=== PATIENT | female | born 1940 | race Caucasian/White ===

== ENCOUNTER 2018-11-16 09:55 | Emergency (ER) | payer OTHER ==
[2018-11-16 11:16] LABS: Protime INR 0.98
[2018-11-16 11:17] LABS: Absolute Lymphocytes (CBC) 0.8 K/uL (0.7-4.9); Absolute Monocytes 0.5 K/uL (0.1-1.3); Absolute Neutrophil 4.1 K/uL (1.8-8.0); Basophils % 0.2 % (0-1.3); Eosinophils % 2.2 % (0-4.4); Hematocrit 40.2 % (36.0-45.0); Lymphocytes % 14.2 % (15.3-44.8); MPV 9.3 fL (7.6-11.3); Monocytes % 9.4 % (3.3-12.3); RBC Red Blood Cell Count 4.35 M/uL (3.86-4.86)
[2018-11-16 11:37] LABS: ALT/SGPT 16 U/L (12-78); AST/SGOT 18 U/L (15-37); Albumin 3.5 g/dL (3.4-5.0); Alkaline Phosphatase 100 U/L (45-117); BUN Blood Urea Nitrogen 19 mg/dL (7-18); Bicarbonate 31 mmol/L (21-32); Bilirubin Direct 0.1 mg/dL (0-0.2); Bilirubin Total 0.3 mg/dL (0.2-1.0); Glucose Level 168 mg/dL (74-106); Magnesium 2.6 mg/dL (1.8-2.4); NT PRO-BNP 573 pg/mL (<450); Sodium Level 141 mmol/L (136-145); Troponin (Emerg Dept Use Only) < 0.02 ng/mL (0.0-0.045)
--- NOTE | 2018-11-16 12:05 | RAD REPORT ---
EXAM DESCRIPTION: RAD - Chest Single View - 11/16/2018 11:55 am CLINICAL HISTORY: dizziness Chest pain. COMPARISON: No comparisons FINDINGS: Portable technique limits examination quality. Mild interstitial pulmonary edema. The heart is upper limit of normal in size. No displaced fractures .Aortic atherosclerosis. IMPRESSION: Mild CHF versus volume overload pattern.
--- NOTE | 2018-11-16 12:23 | RAD REPORT ---
EXAM DESCRIPTION: CT - Head Brain Wo Cont - 11/16/2018 12:16 pm CLINICAL HISTORY: DIZZINESS Trauma, head injury COMPARISON: No comparisons TECHNIQUE: All CT scans are performed using dose optimization technique as appropriate and may inclu de automated exposure control or mA/KV adjustment according to patient size. FINDINGS: No intracranial hemorrhage, hydrocephalus or extra-axial fluid collection.No areas of brai n edema or evidence of midline shift. The paranasal sinuses and mastoids are clear. The calvarium is intact. IMPRESSION: No acute intracranial abnormality.
--- NOTE | 2018-11-16 12:27 | RAD REPORT ---
EXAM DESCRIPTION: CT - Head angio - 11/16/2018 12:20 pm CLINICAL HISTORY: weakness Syncope, headache, head injury. COMPARISON: Head Brain Wo Cont dated 11/16/2018 TECHNIQUE: CT angiography of the head was performed with MIPs. All CT scans are performed using dose optimization technique as appropriate and may include automated exposure control or mA/KV adjustment according to patient size. FINDINGS: No evidence of aneurysm is detected. No flow-limiting stenosis or vascular malformation id entified. origin of both posterior communicating arteries is noted, normal variation. Antegrade flow is seen in the vertebral arteries which are somewhat diminutive in size. The vertebral arteries are codominant. The visualized dural venous sinuses are patent. IMPRESSION: No significant flow abnormality is detected.
--- NOTE | 2018-11-16 13:25 | ER ---
Nurse's Notes [facility] Name: Marion Lara Age: 78 yrs Sex: Female : 1940 Arrival Date: 11/16/2018 Time: 09:59 Bed 6 Private MD: Diagnosis: Dizziness and giddiness;mild CHF - asymptomatic Presentation: 11/16 10:06 Presenting complaint: Patient states: This morning she suddenly started feeling really aj1 dizzy and nauseated, she tried to make it to the bathroom to throw up, but she fell and hit her head on the toilet roll andrade. Bruise noted to right confucianism. Denies LOC, reports vomiting. Patient reports that she is still feeling a little dizzy and "not herself". Transition of care: patient was not received from another setting of care. Onset of symptoms was November 16, 2018 at 09:00. Risk Assessment: Do you want to hurt yourself or someone else? Patient reports no desire to harm self or others. Initial Sepsis Screen: Does the patient meet any 2 criteria? No. Patient's initial sepsis screen is negative. Does the patient have a suspected source of infection? No. Patient's initial sepsis screen is negative. Care prior to arrival: None. 10:06 Method Of Arrival: Ambulatory aj1 10:06 Acuity: [place] 3 aj1 Triage Assessment: 10:11 The onset of the patients symptoms was November 16, 2018 at 09:00. General: Appears in aj1 no apparent distress. comfortable, Behavior is calm, cooperative, appropriate for age. Pain: Denies pain. Neuro: Level of Consciousness is awake, alert, obeys commands. Cardiovascular: Patient's skin is warm and dry. Respiratory: Airway is patent Respiratory effort is even, unlabored, Respiratory pattern is regular, symmetrical. Historical: - Allergies: 10:11 Plavix; aj1 - Home Meds: 10:11 amlodipine oral [Active]; atorvastatin oral oral [Active]; Aspirin Oral [Active]; aj1 - PMHx: 10:11 TIA; Hypertension; Hyperlipidemia; blind in left eye; CVA; aj1 - Immunization history:: Flu vaccine is not up to date. - Social history:: Smoking status: Patient uses tobacco products, smokes one-half pack cigarettes per day. - Ebola Screening: : Patient denies travel to an Ebola-affected area in the 21 days before illness onset. Screenin:44 Abuse screen: Denies threats or abuse. Denies injuries from another. Nutritional hj screening: No deficits noted. Tuberculosis screening: No symptoms or risk factors identified. Fall Risk Fall in past 12 months (25 points). Assessment: 10:45 General: Appears in no apparent distress. uncomfortable, Behavior is calm, cooperative, hj appropriate for age. Pain: Complains of pain in head. Neuro: Level of Consciousness is awake, alert, obeys commands, Oriented to person, place, time, situation, Appropriate for age. Cardiovascular: Capillary refill < 3 seconds Patient's skin is warm and dry. Respiratory: Airway is patent Respiratory effort is even, unlabored, Respiratory pattern is regular, symmetrical. GI: No signs and/or symptoms were reported involving the gastrointestinal system. : No signs and/or symptoms were reported regarding the genitourinary system. EENT: No signs and/or symptoms were reported regarding the EENT system. Derm: No signs and/or symptoms reported regarding the dermatologic system. Musculoskeletal: Reports pain in R confucianism area;. 12:00 General: Appears in no apparent distress. comfortable, Behavior is calm, cooperative, aj1 appropriate for age. Neuro: Level of Consciousness is awake, alert, obeys commands, Oriented to person, place, time, situation, Gait is steady, Speech is normal, Facial symmetry appears normal. Cardiovascular: Patient's skin is warm and dry. Respiratory: Airway is patent Respiratory effort is even, unlabored, Respiratory pattern is regular, symmetrical. GI: No signs and/or symptoms were reported involving the gastrointestinal system. : No signs and/or symptoms were reported regarding the genitourinary system. EENT: No signs and/or symptoms were reported regarding the EENT system. Derm: Bruising that is dark purple, on right confucianism. Musculoskeletal: Circulation, motion, and sensation intact. 13:15 Reassessment: Patient appears in no apparent distress at this time. No changes from aj1 previously documented assessment. Patient and/or family updated on plan of care and expected duration. Pain level reassessed. Patient is alert, oriented x 3, equal unlabored respirations, skin warm/dry/pink. Vital Signs: 10:11 BP 137 / 71; Pulse 85; Resp 18; Temp 97.8; Pulse Ox 99% on R/A; Weight 57.15 kg (R); aj1 Height 5 ft. 1 in. (154.94 cm) (R); Pain 0/10; 12:38 BP 148 / 61; Pulse 72; Resp 19; Pulse Ox 99% on R/A; aj1 13:47 BP 135 / 62; Pulse 75; Resp 18; Pulse Ox 98% on R/A; aj1 10:11 Body Mass Index 23.81 (57.15 kg, 154.94 cm) aj1 ED Course: 09:59 Patient arrived in ED. rg4 10:09 Triage completed. aj1 10:11 Arm band placed on Patient placed in an exam room. aj1 10:18 Toy Bill MD is Attending Physician. kdr 10:31 Jenaro Marquez, ROSI is Primary Nurse. hj 10:44 Patient has correct armband on for positive identification. Placed in gown. Bed in low hj position. Call light in reach. Side rails up X 1. 10:53 EKG done, by information technology technician. reviewed by Toy Bill MD. at1 10:55 Initial lab(s) drawn, by pr, sent to lab. Inserted saline lock: 20 gauge in right hj antecubital area, using aseptic technique. Blood collected. 11:15 Radiology exam delayed due to lab results not completed at this time. (BUN/Creatinine). vr 11:55 XRAY Chest (1 view) In Process Unspecified. EDMS 11:55 X-ray completed. Portable x-ray completed in exam room. Patient tolerated procedure ls3 well. 11:58 Alyson Morales, RN is Primary Nurse. aj1 12:16 CT Head Brain wo Cont In Process Unspecified. EDMS 12:20 Head angio In Process Unspecified. EDMS 13:47 No provider procedures requiring assistance completed. IV discontinued, intact, aj1 bleeding controlled, No redness/swelling at site. Pressure dressing applied. Administered Medications: No medications were administered Outcome: 13:24 Discharge ordered by . kdr 13:48 Discharged to home ambulatory, with family. aj1 13:48 Condition: good 13:48 Discharge instructions given to patient, family, Instructed on discharge instructions, follow up and referral plans. medication usage, Demonstrated understanding of instructions, follow-up care, medications, Prescriptions given X 1. 13:55 Patient left the ED. aj1 Signatures: Dispatcher [employer] EDAlyson Sepulveda RN RN aj1 Toy Bill MD MD kdr Davis, Victoria vr Gonzales, Amanda, [facility] EK Tat1 Jenaro Marquez, RN Lubna Dewitt4 Raquel Corbett 3
--- NOTE | 2018-11-16 13:25 | EDPHYS ---
Physician Documentation [facility] Name: Marion Lara Age: 78 yrs Sex: Female : 1940 Arrival Date: 11/16/2018 Time: 09:59 Bed 6 Private MD: ED Physician Toy Bill HPI: 11/16 11:50 This 78 yrs old Female presents to ER via Ambulatory with complaints of kdr Weakness, Nausea. 11:50 The patient presents with dizziness, generalized weakness, lightheadedness, feeling off kdr balance, vertigo. Onset: The symptoms/episode began/occurred suddenly, just prior to arrival, this morning, Shortly after she awoke this morning and while she was making her bed.. Context: occurred at home, occurred while the patient was standing, Making the bed. Context: just prior to the episode the patient experienced no apparent symptoms. Modifying factors: The symptoms are alleviated by nothing, the symptoms are aggravated by movement of head, changing position. Associated signs and symptoms: The patient has no apparent associated signs or symptoms. Severity of symptoms: At their worst the symptoms were mild in the emergency department the symptoms have resolved. Patient's baseline: Neuro: alert and fully oriented, Motor: no deficits, Ambulation: walks without assistance, Speech: normal, The patient has a previous history of CVA. The patient has not experienced similar symptoms in the past. The patient has not recently seen a physician. Historical: - Allergies: 10:11 Plavix; aj1 - Home Meds: 10:11 amlodipine oral [Active]; atorvastatin oral oral [Active]; Aspirin Oral [Active]; aj1 - PMHx: 10:11 TIA; Hypertension; Hyperlipidemia; blind in left eye; CVA; aj1 - Immunization history:: Flu vaccine is not up to date. - Social history:: Smoking status: Patient uses tobacco products, smokes one-half pack cigarettes per day. - Ebola Screening: : Patient denies travel to an Ebola-affected area in the 21 days before illness onset. ROS: 11:50 Constitutional: Negative for fever, chills, and weight loss, Eyes: Negative for injury, kdr pain, redness, and discharge, ENT: Negative for injury, pain, and discharge, Neck: Negative for injury, pain, and swelling, Cardiovascular: Negative for chest pain, palpitations, and edema, Respiratory: Negative for shortness of breath, cough, wheezing, and pleuritic chest pain, Abdomen/GI: Negative for abdominal pain, nausea, vomiting, diarrhea, and constipation, Back: Negative for injury and pain, : Negative for injury, bleeding, discharge, and swelling, MS/Extremity: Negative for injury and deformity, Skin: Negative for injury, rash, and discoloration, Neuro: Negative for headache, weakness, numbness, tingling, and seizure activity. Psych: Negative for depression, anxiety, suicide ideation, homicidal ideation, and hallucinations, Allergy/Immunology: Negative for hives, rash, and allergies, Endocrine: Negative for neck swelling, polydipsia, polyuria, polyphagia, and marked weight changes, Hematologic/Lymphatic: Negative for swollen nodes, abnormal bleeding, and unusual bruising. Exam: 11:50 Constitutional: This is a well developed, well nourished patient who is awake, alert, kdr and in no acute distress. Head/Face: Normocephalic, atraumatic. Eyes: Pupils equal round and reactive to light, extra-ocular motions intact. Lids and lashes normal. Conjunctiva and sclera are non-icteric and not injected. Cornea within normal limits. Periorbital areas with no swelling, redness, or edema. Neck: Trachea midline, no thyromegaly or masses palpated, and no cervical lymphadenopathy. Supple, full range of motion without nuchal rigidity, or vertebral point tenderness. No Meningismus. Chest/axilla: Normal chest wall appearance and motion. Nontender with no deformity. No lesions are appreciated. Cardiovascular: Regular rate and rhythm with a normal S1 and S2. No gallops, murmurs, or rubs. Normal PMI, no JVD. No pulse deficits. Respiratory: Lungs have equal breath sounds bilaterally, clear to auscultation and percussion. No rales, rhonchi or wheezes noted. No increased work of breathing, no retractions or nasal flaring. Abdomen/GI: Soft, non-tender, with normal bowel sounds. No distension or tympany. No guarding or rebound. No evidence of tenderness throughout. Back: No spinal tenderness. No costovertebral tenderness. Full range of motion. Skin: Warm, dry with normal turgor. Normal color with no rashes, no lesions, and no evidence of cellulitis. MS/ Extremity: Pulses equal, no cyanosis. Neurovascular intact. Full, normal range of motion. Neuro: Awake and alert, GCS 15, oriented to person, place, time, and situation. Cranial nerves II-XII grossly intact. Motor strength 5/5 in all extremities. Sensory grossly intact. Cerebellar exam normal. Normal gait. Psych: Awake, alert, with orientation to person, place and time. Behavior, mood, and affect are within normal limits. Vital Signs: 10:11 BP 137 / 71; Pulse 85; Resp 18; Temp 97.8; Pulse Ox 99% on R/A; Weight 57.15 kg (R); aj1 Height 5 ft. 1 in. (154.94 cm) (R); Pain 0/10; 12:38 BP 148 / 61; Pulse 72; Resp 19; Pulse Ox 99% on R/A; aj1 13:47 BP 135 / 62; Pulse 75; Resp 18; Pulse Ox 98% on R/A; aj1 10:11 Body Mass Index 23.81 (57.15 kg, 154.94 cm) 1 MDM: 11:50 Data reviewed: vital signs, nurses notes, lab test result(s), radiologic studies. kdr Counseling: I had a detailed discussion with the patient and/or guardian regarding: the historical points, exam findings, and any diagnostic results supporting the discharge/admit diagnosis, lab results, radiology results. 13:24 Patient medically screened. [facility] 11/16 10:47 Order name: Basic Metabolic Panel; Complete Time: 13:18 [facility] 11/16 10:47 Order name: CBC with Diff; Complete Time: 13:18 [facility] 11/16 10:47 Order name: LFT's; Complete Time: 13:18 [facility] 11/16 10:47 Order name: Magnesium; Complete Time: 13:18 [facility] 11/16 10:47 Order name: NT PRO-BNP; Complete Time: 13:18 [facility] 11/16 10:47 Order name: PT-INR; Complete Time: 13:18 [facility] 11/16 10:34 Order name: EKG; Complete Time: 10:35 11/16 10:47 Order name: Troponin (emerg Dept Use Only); Complete Time: 13:18 [facility] 11/16 10:47 Order name: XRAY Chest (1 view); Complete Time: 13:18 [facility] 11/16 10:47 Order name: Cardiac monitoring; Complete Time: 10:49 kdr 11/16 10:47 Order name: EKG - Nurse/Tech; Complete Time: 10:49 kdr 11/16 10:47 Order name: IV Saline Lock; Complete Time: 10:59 kdr 11/16 10:47 Order name: CT Head Brain wo Cont; Complete Time: 13:18 kdr 11/16 10:50 Order name: Head angio; Complete Time: 13:18 EDAZ 11/16 10:47 Order name: Labs collected and sent; Complete Time: 10:59 kdr 11/16 10:47 Order name: O2 Per Protocol; Complete Time: 10:49 kdr 11/16 10:47 Order name: O2 Sat Monitoring; Complete Time: 10:49 kdr Administered Medications: No medications were administered Disposition: 11/16/18 13:24 Discharged to Home. Impression: Dizziness and giddiness, mild CHF - asymptomatic. - Condition is Stable. - Discharge Instructions: Vertigo, [id number], Dizziness, [id number]. - Prescriptions for Meclizine 25 mg Oral Tablet - take 1 tablet by ORAL route every 8 hours As needed; 30 tablet. - Medication Reconciliation Form, Thank You Letter form. - Follow up: Private Physician; When: 2 - 3 days; Reason: If symptoms return, Further diagnostic work-up, Recheck today's complaints, Continuance of care, Re-evaluation by your physician. - Problem is new. - Symptoms are resolved. Signatures: Dispatcher [employer] EDAZ Alyson Morales RN RN aj1 Toy Bill MD MD kdr Corrections: (The following items were deleted from the chart) 13:55 13:24 11/16/2018 13:24 Discharged to Home. Impression: Dizziness and giddiness; mild aj1 CHF - asymptomatic. Condition is Stable. Forms are Medication Reconciliation Form, Thank You Letter, Antibiotic Education, Prescription Opioid Use. Follow up: Private Physician; When: 2 - 3 days; Reason: If symptoms return, Further diagnostic work-up, Recheck today's complaints, Continuance of care, Re-evaluation by your physician. Problem is new. Symptoms are resolved. kdr
--- NOTE | 2018-11-16 14:36 | EKG ---
Test Date: 2018-11-16 Test Time: 10:44:08 Calciner Feeder: MARY MEASUREMENT RESULTS: Intervals: Rate: 73 WA: 160 QRSD: 84 QT: 410 QTc: 451 [place]: P: 77 WA: 160 QRS: 56 T: 65 INTERPRETIVE STATEMENTS: Normal sinus rhythm Septal infarct, age undetermined Abnormal ECG No previous ECG available for comparison Electronically Signed On 11-16-18 14:35:22 [employer] SPECIALIST by Lobo Schmitz
== END 2018-11-16 13:55 | disposition home or self-care (01) ==
LOC: ER 09:55
DX: R42 Dizziness and giddiness (principal); I50.9 Heart failure, unspecified; F17.210 Nicotine dependence, cigarettes, uncomplicated; I10 Essential (primary) hypertension; E78.5 Hyperlipidemia, unspecified; Z79.82 Long term (current) use of aspirin; Z86.73 Personal history of transient ischemic attack (TIA), and cerebral infarction without residual deficits; Z88.8 Allergy status to other drugs, medicaments and biological substances
CPT/HCPCS: 36415; 70450; 70496; 71045; 80048; 80076; 83735; 83880; 84484; 85025; 85610; 93005; 99284; Q9967